=== PATIENT | male | born 1970 | race Caucasian/White ===

== ENCOUNTER 2019-11-14 21:39 | Emergency (ER) | payer OTHER, SELFPAY ==
--- NOTE | 2019-11-14 21:41 | XRR_ITS ---
PROCEDURE INFORMATION: Exam: XR Chest, 1 View Exam date and time: 11/14/2019 9:52 PM Age: 49 years old Clinical indication: Patient HX: C/O cp w syncope TECHNIQUE: Imaging protocol: XR of the chest Views: 1 view. COMPARISON: No relevant prior studies available. FINDINGS: Lungs: Unremarkable. No consolidation. Pleural space: Unremarkable. No pleural effusion. No pneumothorax. Heart/Mediastinum: Unremarkable. No cardiomegaly. Bones/joints: Unremarkable. XR/XR chest 1V portable [id number] IMPRESSION: No acute findings.
[2019-11-14 21:42] VITALS: BP 117/82; RESP 18; TEMP 36.6; O2SAT 95; BMI 23.8
--- NOTE | 2019-11-14 21:45 | ED_ITS ---
HPI - Chest Pain General: Chief Complaint: Chest Pain Stated Complaint: CP/ SYNCOPAL EPISODE Time Seen by Provider: 11/14/19 21:41 Source: patient and EMS Mode of arrival: EMS Limitations: no limitations History of Present Illness: HPI narrative: 49-year-old male who states he is been having chest pain on and off over the last month. [place] [employer] [place] and states he has been drinking and felt like he got dehydrated and had a near syncopal event. He states he also had worsening chest pain throughout the day that is been sharp in nature. He denies any nausea or shortness of breath. He states he feels much improved now MD complaint: chest pain Onset (ago): month(s) Timing of current episode: episodic Associated symptoms: Deny abdominal pain, dyspnea, fever(s), nausea or vomiting Review of Systems Const: Denies: fever(s), chills, body aches or change in appetite Eyes: Denies: blurry vision or eye discomfort ENMT: Denies: throat pain or dental pain Card: Reports: chest pain Resp: Denies: dyspnea GI: Denies: abdominal pain, nausea, vomiting or diarrhea : Denies: dysuria Musc: Denies: neck pain or back pain Skin/Breast: Denies: rash Neuro: Denies: headache(s) Psych: Denies: depression Maikel/Lymph: Denies: easy bruising All/Imm: Denies: urticaria PFSH ED PFSH: Social History Smoking and tobacco status: never smoked Physical Exam Const: COMMON NORMALS: no acute distress, patient oriented x3 and healthy a ppearing HENMT: COMMON NORMALS: normocephalic and atraumatic HEAD & SCALP: normocephalic and atraumatic Eye: COMMON NORMALS: Equal, round and reactive pupils present and EOMs intact bilaterally PUPIL: Yes Equal, round and reactive pupils present Neck/C-Spine: COMMON NORMALS: full ROM and supple Chest: COMMONS NORMALS: normal inspection of the chest and normal palpation of entire chest wall Resp: COMMON NORMALS: normal respiratory effort, No retractions, No use of accessory muscles and clear to auscultation bilaterally AUSCULTATION: clear to auscultation bilaterally Cardio: COMMON NORMALS: regular rate, regular rhythm and No murmurs present (Cardio) RATE: regular rate RHYTHM: regular rhythm GI: COMMON NORMALS: Normal to inspection, nondistended, normoactive bowel sounds present, Soft to palpation, non-tender and no masses PALPATION: Yes Soft to palpation Extremity: COMMON NORMALS: normal to inspection and full ROM Neuro: COMMON NORMALS: patient oriented x3, moves all extremities and no focal motor deficits Psych: COMMON NORMALS: mental status grossly normal, Normal thought process present and cooperative THOUGHT PROCESS: Normal thought process present Skin: COMMON NORMALS: no rashes or lesions noted and no wounds GENERAL SKIN EXAM: no rashes or lesions noted Course Vital Signs: Vital signs: Vital Signs Temperature 97.8 F 11/14/19 21:42 Pulse Rate 74 11/14/19 22:40 Respiratory Rate 22 H 11/14/19 22:40 Blood Pressure 112/72 11/14/19 22:40 Pulse Oximetry 95 11/14/19 22:40 MDM - Chest Pain MDM Narrative: Medical decision making narrative: 49-year-old male who presented here with chest pain is very atypical in nature. His pain is been going on for months I believe is exacerbated today by getting overheated. He feels much improved here after IV fluids. Patient's troponin and EKG are normal. He is to follow-up with his primary care doctor in 3 to 5 days and return if worsening. Lab Data: Labs: Lab Results 11/14/19 11/14/19 11/14/19 Range/Units 21:55 21:55 21:55 WBC 13.8 H (4.0-10.0) 10^3/ uL RBC 4.57 (4.1-5.3) 10^6/u L Hgb 13.9 (11.7-16.6) g/dL Hct 41.2 L (42.0-52.0) % MCV 90.2 (80-94) fL MCH 30.4 (28.0-34.0) pg MCHC 33.7 (30.0-36.0) g/dL RDW 12.0 L (12.1-15.1) % Plt Count 367 (130-400) 10^3/c mm MPV 10.0 (7.4-10.4) fL Neut % (Auto) 83.3 % Lymph % (Auto) 12.0 % Davison % (Auto) 3.6 % Eos % (Auto) 0.4 % Baso % (Auto) 0.4 % Neut # (Auto) 11.5 H (1.8-7.7) 10^3/u L Lymph # (Auto) 1.7 (0.8-4.8) 10^3/u L Davison # (Auto) 0.5 (0.2-0.9) 10^3/u L Eos # (Auto) 0.1 (0.0-0.8) 10^3/u L Baso # (Auto) 0.1 (0.0-0.1) 10^3/u L Nucleated RBC % (a uto) 0 % Nucleated RBCs # 0.0 /100WBC Sodium 138 (136-145) mmol/L Potassium 3.7 (3.5-5.1) mmol/L Chloride 100 (98-107) mmol/L Carbon Dioxide 25 (22-29) mmol/L Anion Gap 16.7 (5-19) BUN 14 (6-20) mg/dL Creatinine 0.9 (0.7-1.2) mg/dL GFR Calculation 89.3 L (90-130) mL/min Glucose 101 (65-115) mg/dL Calculated Osmolal ity 282 L (285-295) mOsm/k g Calcium 9.6 (8.5-10.5) mg/dL Total Bilirubin 0.3 (0.15-1.2) mg/dL AST 28 (0-40) U/L ALT 38 (0-41) U/L Alkaline Phosphata se 56 (40-130) IU/L Troponin T Baselin e 6 (0-15) ng/L Total Protein 7.0 (6.6-8.7) g/dL Albumin 5.1 (3.5-5.2) g/dL Globulin 1.9 (1.3-4.6) g/dL Ethyl Alcohol 86 H (0-10) mg/dL Imaging Data^: CXR: Attestation: I personally reviewed and interpreted this imaging study as follows: My impression: no acute abnormalities EKG Data^: EKG 1: Attestation: I personally reviewed and interpreted this EKG as follows: EKG interpretation date: 11/14/19 EKG interpretation time: 21:59 Interpretation: nsr hr [address] or t wave abnormalities qrs 102 qtc 397 Discharge Plan Discharge Patient Disposition: Home, Self-Care Clinical Impression: Near syncope Chest pain Qualifiers: Chest pain type: other chest pain Qualified Code(s): R07.89 - Other chest pain Condition: Stable Prescriptions: No Action Unable to Assess RF: 0 Discharge Orders: Discharge Order (Routine); Ordered 11/14/19 Ordered By: Sandrine Bautista Discharge Diet: Advance as tolerated Discharge Activity: Resume usual activity Patient Instructions: Chest Pain (ED) Coding Level of Care Code ED Reference Services Head for [facility] Fwd Exam Comprehensive
[2019-11-14 22:04] LABS: Basophils # 0.1 10^3/uL (0.0-0.1); Basophils % 0.4 %; Eosinophils # 0.1 10^3/uL (0.0-0.8); Eosinophils % 0.4 %; Hematocrit 41.2 % (42.0-52.0); Hemoglobin 13.9 g/dL (11.7-16.6); Lymphocytes # 1.7 10^3/uL (0.8-4.8); Mean Corpuscular HGB Conc 33.7 g/dL (30.0-36.0); Mean Corpuscular Hemoglobin 30.4 pg (28.0-34.0); Mean Corpuscular Volume 90.2 fL (80-94); Monocytes # 0.5 10^3/uL (0.2-0.9); Monocytes % 3.6 %; Neutrophils # 11.5 10^3/uL (1.8-7.7); Neutrophils % 83.3 %; Nucleated Red Blood Cells % 0 %; Platelet Count 367 10^3/cmm (130-400); Red Blood Count 4.57 10^6/uL (4.1-5.3); White Blood Count 13.8 10^3/uL (4.0-10.0)
[2019-11-14 22:26] LABS: Alanine Aminotransferase 38 U/L (0-41); Albumin Level 5.1 g/dL (3.5-5.2); Alcohol Level 86 mg/dL (0-10); Alkaline Phosphatase 56 IU/L (40-130); Anion Gap 16.7 (5-19); Aspartate Amino Transferase 28 U/L (0-40); Blood Urea Nitrogen 14 mg/dL (6-20); Calcium 9.6 mg/dL (8.5-10.5); Carbon Dioxide 25 mmol/L (22-29); Chloride 100 mmol/L (98-107); Globulin 1.9 g/dL (1.3-4.6); Glomerular Filtration Rate 89.3 mL/min (90-130); Glucose 101 mg/dL (65-115); Osmolality Calculated 282 mOsm/kg (285-295); Potassium 3.7 mmol/L (3.5-5.1); Sodium 138 mmol/L (136-145); Total Bilirubin 0.3 mg/dL (0.15-1.2)
[2019-11-14 22:30] LABS: Troponin(5th) Baseline 6 ng/L (0-15)
[2019-11-14] MEDS: sodium chloride 0.9% 1,000 ML 999 ML IV (22:34)
[2019-11-14 22:40] VITALS: BP 112/72; PULSE 74; RESP 22; O2SAT 95
[2019-11-14 23:07] VITALS: BP 128/79; PULSE 88; RESP 16; O2SAT 97
--- NOTE | 2019-11-14 23:41 | ECG_ITS ---
Measurements Intervals [place] Rate: 83 P: 36 OH: 183 QRS: -15 QRSD: 102 T: 44 QT: 357 QTc: 421 SINUS RHYTHM POSSIBLE LEFT ATRIAL ENLARGEMENT [-0.1mV P WAVE IN V1/V2] No previous ECG available for comparison Electronically Signed On 11-15-2019 19:07:07 CDT by Evangelist López M.D. [email or web address]
== END 2019-11-14 23:09 | disposition home or self-care (01) ==
LOC: ER 22:49
PROVIDERS: Emergency Provider Emergency Medicine
DX: R07.89 Other chest pain (principal); R55 Syncope and collapse
CPT/HCPCS: 12345; 71045; 80053; 80307; 84484; 85025; 93005; 96360; 99282; 99284; J7030